=== PATIENT | female | born 1980 | race Caucasian/White ===

== ENCOUNTER 2016-09-05 14:22 | Emergency (ER) | payer BC, OTHER ==
[~2016-09-05] VITALS: Ht 177.8 cm; Wt 154.4 kg
[~2016-09-05 14:22] MED LIST: ALPR1TAB2 PO; DULO60CA7 PO; FLUO40CA9 PO; LISI-170 PO; ZOLP10TA PO
[2016-09-05] MEDS ORDERED: ONDANSETRON ODT 4 MG ONE (14:53)
[2016-09-05] MEDS ORDERED: LORazepam 1MG TABLET ONE (14:53)
[2016-09-05 14:57] VITALS: BP 126/81
[2016-09-05] MEDS ORDERED: LORazepam 1MG TABLET PO ONE (15:00)
[2016-09-05] MEDS ORDERED: ONDANSETRON ODT 8 MG PO ONE (15:00)
[2016-09-05] MEDS ORDERED: METH40TA3 PO (15:07)
== END 2016-09-05 15:59 | disposition home or self-care (01) ==
LOC: ED 15:10
DX: T40.3X1A Poisoning by methadone, accidental (unintentional), initial encounter (principal); R11.2 Nausea with vomiting, unspecified; Y92.9 Unspecified place or not applicable; I10 Essential (primary) hypertension; F41.1 Generalized anxiety disorder
CPT/HCPCS: 99283; Q0162

== ENCOUNTER 2017-12-15 22:10 | Emergency (ER) | payer MEDICAID ==
[~2017-12-15] VITALS: Ht 180.3 cm; Wt 159.3 kg
[~2017-12-15 22:10] MED LIST changes: +METH40TA3 PO
[2017-12-15 22:14] VITALS: BP 161/94
== END 2017-12-16 00:01 | disposition home or self-care (01) ==
LOC: ED 23:55
DX: S69.92XA Unspecified injury of left wrist, hand and finger(s), initial encounter (principal); J00 Acute nasopharyngitis [common cold]; I10 Essential (primary) hypertension; F17.200 Nicotine dependence, unspecified, uncomplicated; X58.XXXA Exposure to other specified factors, initial encounter; Y93.89 Activity, other specified; Y92.89 Other specified places as the place of occurrence of the external cause; Y99.8 Other external cause status
CPT/HCPCS: 29125; 71046; 99284